=== PATIENT | female | born 1980 ===

== ENCOUNTER 2017-03-21 20:44 | Emergency (ER) | payer SELFPAY ==
[~2017-03-21] VITALS: Ht 162.6 cm; Wt 68.0 kg
[2017-03-21 21:00] VITALS: BP 142/82
--- NOTE | 2017-03-21 21:11 | Emergency Room Report ---
History of Present Illness General Chief Complaint: Behavioral Complaint Source: Patient Present Illness HPI Is a 36-year-old female who is homeless and has history of methamphetamine abuse. She walked in with chief complaint of feeling suicidal. She said she is under a lot of stress and felt like that she may have HIV. She was told this today. She said the person that she's up with has HIV and she wanted me to tell. This make her depression worse. She been in and out of multiple psychiatric facility already. She has a followup on Thursday with 3 different psychological services 2 days from now. Denies any other complaint. No hallucination or delusion. Allergies: Coded Allergies: No Known Allergies (Unverified , 03/21/17) Patient History Past Medical History: see triage record, old chart reviewed Past Surgical History: other Family History: none Social History: tobacco use, drug use Last Menstrual Period: 2 DAYS AGO Now: No : 5 Immunizations: other Reviewed Nursing Documentation: PMH: Agreed, PSxH: Agreed Review of Systems ENT: Denies: sore throat Cardiovascular: Denies: chest pain, palpitations Gastrointestinal/Abdominal: Denies: diarrhea, nausea, vomiting Musculoskeletal: Denies: back problems Skin: Denies: rash Neurological: Denies: HOLDER, seizures All Other Systems: negative except mentioned in HPI Physical Exam Vital Signs Date Time Temp Pulse Resp B/P Pulse Ox O2 Delivery O2 Flow Rate FiO2 03/21/17 20:47 97.9 69 18 145/84 100 Room Air vitals normal Sp02 EP Interpretation: reviewed, normal General Appearance: alert/responsive, no apparent distress, non-toxic Head: normocephalic, atraumatic Eyes: PERRL, EOMI ENT: oropharynx normal Neck: supple/symm/no masses Respiratory: effort normal, no rhonchi, no wheezing Cardiovascular: no murmur, gallop, rub Gastrointestinal: non-tender, no mass, non-distended, no rebound/guarding, normal bowel sounds Musculoskeletal: gait & station normal Neurologic: oriented x3, sensory intact, motor strength/tone normal Skin: no rash, normal palpation Medical Decision Making Diagnostic Impression: Primary Impression: Depression Qualified Codes: F33.9 - Major depressive disorder, recurrent, unspecified Additional Impression: Methamphetamine abuse ER Course Patient present with depression with suicidal thoughts. Probably exacerbated by drugs. She felt better now after sleeping tonight. No longer suicidal. No longer vasculature for 5150. We'll discharge home. She has an appointment tomorrow with her psychiatrist. This patient is a chronic risk of self injury due to poor impulse control, limited coping skills, and judgment intermittently impaired by intoxication. I believe that the available clinical evidence to suggest that these characteristics derived primarily from personality disorder and are likely very stable over time. Hospitalization would likely attenuate risk of self-harm only during usp period, without lasting risk reduction. Serious self-harm , while possible, would likely be inadvertent, and because of impulsivity, and foreseeable. For these reasons, I do not believe hospitalization would provide meaningful reduction in risk of self-harm. Last Vital Signs Date Time Temp Pulse Resp B/P Pulse Ox O2 Delivery O2 Flow Rate FiO2 03/21/17 20:47 97.9 69 18 145/84 100 Room Air Status: improved Disposition: HOME, SELF-CARE Condition: Stable Additional Instructions: Keep your appointment with her psychiatrist tomorrow. Return if symptom worsen. Abstain from drugs. NATALIIA ESPINAL M.D. Mar 21, 2017 21:11
[2017-03-21 21:49] LABS: BASOPHILS % (AUTO) 1.7 % (0.0-2.0); EOSINOPHILS % (AUTO) 2.2 % (0.0-3.0); LYMPHOCYTES % (AUTO) 35.5 % (20.0-45.0); MEAN CORPUSCULAR HEMOGLOBIN 30.9 PG (27.0-31.0); MEAN CORPUSCULAR HGB CONC 32.5 G/DL (32.0-36.0); MEAN CORPUSCULAR VOLUME 95 FL (80-99); MEAN PLATELET VOLUME 7.7 FL (6.5-10.1); MONOCYTES % (AUTO) 6.2 % (1.0-10.0); NEUTROPHILS % (AUTO) 54.4 % (45.0-75.0); PLATELET COUNT 276 K/UL (150-450); RED BLOOD COUNT 4.03 M/UL (4.20-5.40); RED CELL DISTRIBUTION WIDTH 14.2 % (11.6-14.8); WHITE BLOOD COUNT 8.1 K/UL (4.8-10.8)
[2017-03-21 22:13] LABS: ACETAMINOPHEN < 10 ug/mL (10-30); ALANINE AMINOTRANSFERASE 12 U/L (3-33); ALBUMIN/GLOBULIN RATIO 1.1 (1.0-2.7); ALCOHOL < 10 mg/dL; ANION GAP 19 (5-15); ASPARTATE AMINO TRANSFERASE 19 U/L (5-40); CARBON DIOXIDE 22 mEQ/L (20-30); CHLORIDE 97 mEQ/L (98-107); CREATININE 0.9 mg/dL (0.5-0.9); GLOMERULAR FILTRATION RATE > 60 mL/min (>60); HEMOLYSIS 4; POTASSIUM 3.6 mEQ/L (3.4-4.9); SODIUM 138 mEQ/L (135-145); TOTAL PROTEIN 7.6 g/dL (6.6-8.7)
[2017-03-21 22:50] VITALS: BP 138/78
[2017-03-22 02:00] VITALS: BP 131/74
[2017-03-22 04:05] VITALS: BP 128/72
[2017-03-22 05:25] VITALS: BP 129/74
== END 2017-03-22 05:25 | disposition home or self-care (01) ==
LOC: EMR 21:55
DX: F33.9 Major depressive disorder, recurrent, unspecified (principal); F15.10 Other stimulant abuse, uncomplicated; Z72.0 Tobacco use
CPT/HCPCS: 36415; 80053; 80300; 85025; 86703; 99284; G0480; 80329